=== PATIENT | male | born 1970 | race Caucasian/White ===

== ENCOUNTER → 2023-06-21 16:55 | Outpatient (REF) | payer OTHER, SELFPAY | LOC: RAD 16:55 | PROVIDERS: ATTENDING PHYSICIAN Podiatrist Foot & Ankle Surgery; FAMILY PHYSICIAN Family Medicine | DX: M79.672 Pain in left foot (principal) | CPT/HCPCS: 73630 ==

== ENCOUNTER → 2023-07-19 15:21 | Outpatient (REF) | payer OTHER, SELFPAY | LOC: RAD 15:21 | PROVIDERS: ATTENDING PHYSICIAN Podiatrist Foot & Ankle Surgery; FAMILY PHYSICIAN Family Medicine | DX: M79.672 Pain in left foot (principal) | CPT/HCPCS: 73630 ==

== ENCOUNTER 2024-06-28 12:02 | Emergency (ER) | payer OTHER, SELFPAY ==
[2024-06-28 12:12] VITALS: BP 120/84
--- NOTE | 2024-06-28 13:52 | ED.SKININJ ---
HPI-Injury
General
Chief Complaint: Skin Problem
Source: patient
Exam Limitations: none
Time Seen by Provider: 06/28/24 13:44
Nursing documentation reviewed up to this point in time: agreed with
History of Present Illness-Injury
Is this injury a work related problem?: No
Is pt an associate of [facility]?: No
Initial Injury comments:
Patient states he accidentally cut auricle of ear with razor 3 days ago. Site became swollen and painful. Starting to feel better but he was concerned so he came to ED. No fever/chills.
Past History
Past History
ED Past Medical History: None
ED Past Surgical History: Orthopedic
Social History
Tobacco: Non-smoker
Alcohol: None
Drug: None
Personal: Single
Living: alone
Review of Systems
Review of Systems
Allergies reviewed?: Yes
All Other Systems: ROS reviewed and negative except as documented in HPI and ROS
Constitutional: Reports no symptoms
Musculoskeletal: Reports no symptoms
Skin: Reports other (5mm wound to left auricle. No drainage. Mild erythema.)
Neurological: Reports no symptoms
Psychiatric: Reports no symptoms
Phy Exam
General Physical Exam
General Presentation: well appearing and no apparent distress
General age: appears stated age
General Skin: warm and dry
General Habitus: normal
General Mental: alert
Musculoskeletal Exam
Musculoskeletal Exam: full ROM
Skin Exam
Skin Exam: other (5mm wound to left auricle. Mild erythema and swelling, no drainage. WIll cover with short course Keflex. )
Psychiatric Exam
Psychiatric Exam: normal mood/affect
Course
Vital Signs
Initial and Last Documented VS:
Initial Vital Signs
Temp Pulse Resp BP Pulse Ox
98.5 F 133 15 120/84 99
06/28/24 12:12 06/28/24 12:12 06/28/24 12:12 06/28/24 12:12 06/28/24 12:12
Last Documented Vital Signs
Temp Pulse Resp BP Pulse Ox
98.5 F 133 15 120/84 99
06/28/24 12:12 06/28/24 12:12 06/28/24 12:12 06/28/24 12:12 06/28/24 12:12
*Critical Care Note
Total Time (30-74mins, 75-104mins- exclusive of procedures): Not Applicable
ED Attending Note
-
Portions of this chart may have been created with voice recognition software.� Occasional wrong word or��sound alike� substitutions may have occurred due to the inherent limitations of voice recognition software.
Discharge Plan
Departure
Patient Disposition: Home (Routine Discharge)
Date of Disposition: 06/28/24
Time of Disposition: 13:50
Patient with high blood pressure during this ER visit?: No
Condition: Good
Covid-19: Not Applicable
Discharge Problem:
Cellulitis of ear
Instructions: Wound Care (DC)
Prescriptions:
New
cephalexin 500 mg capsule
500 mg PO BID 5 Days Qty: 10 0RF
Referrals:
Fox Florentino, [Family Provider] - Follow up in 2-3 days
Activity Restrictions/Additional Instructions:
Warm compresses to your ear 15-20 minutes at a time, 4-5 times daily. Do not squeeze wound.
Interventions
Interventions:
*Risk Screen - Suicide Last Done: 06/28/24 12:12
*General Assessment Last Done: 06/28/24 12:12
*Neglect/Abuse Screening Last Done: 06/28/24 12:12
ED- Fall Risk Assessment Last Done: 06/28/24 13:00
*ED COVID-19 Vaccine History Last Done: 06/28/24 13:00
ED-Skin Assessment Last Done: 02/14/25 13:00
Discharge Date and Time
Print Language: TANZANIAN
== END 2024-06-28 14:26 | disposition home or self-care (01) ==
LOC: EMR 12:02
PROVIDERS: EMERGENCY PHYSICIAN Emergency Medicine; FAMILY PHYSICIAN Family Medicine
DX: S01.302A Unspecified open wound of left ear, initial encounter (principal); H60.12 Cellulitis of left external ear; W26.8XXA Contact with other sharp object(s), not elsewhere classified, initial encounter
CPT/HCPCS: 99283